=== PATIENT | female | born 1990 | race Two or more races ===

== ENCOUNTER 2017-02-27 11:26 | Emergency (ER) | payer OTHER ==
[~2017-02-27] VITALS: Ht 160 cm; Wt 63.5 kg
[~2017-02-27 11:26] MED LIST: CIPRO PO; NAPROSYN375 MG PO
== END 2017-02-27 13:35 | disposition home or self-care (01) ==
LOC: CED 11:26 → CFTX 11:26
DX: O99.713 Diseases of the skin and subcutaneous tissue complicating pregnancy, third trimester (principal); L03.012 Cellulitis of left finger
CPT/HCPCS: 10060; 99283